=== PATIENT | female | born 1980 | race Caucasian/White ===

== ENCOUNTER 2022-10-10 10:08 | Day surgery (SDC) | payer BC ==
[2022-10-10] MEDS ORDERED: LIDOCAINE HCL 1% 50 MG/5 ML VL PF IJ ONE (10:09)
[2022-10-10] MEDS ORDERED: Decadron 4 MG INJ IV ONE (10:09)
[2022-10-10 10:29] LABS: HCG URINE TEST NEGATIVE (NEGATIVE)
[2022-10-10] MEDS ORDERED: DIPRIVAN 200 MG/20 ML IV ONE (12:01)
--- NOTE | 2022-10-10 13:12 | XRAY ---
Indication: Bilateral piriformis injection Intraoperative fluoroscopy provided for 16 seconds. 4 digital spot image submitted for interpretation demonstrates posterior needle tip projecting over the expected left and right piriformis muscle. Small amount of contrast injected for needle tip placement. Correlate with intraoperative findings/report.
[2022-10-10] MEDS ORDERED: Lactated Ringers 1,000 ML IV ONE (13:35)
--- NOTE | 2022-10-10 13:56 | XRAY ---
16 seconds of fluoroscopy was used in surgery for a bilateral piriformis injection.
== END 2022-10-10 12:30 | disposition home or self-care (01) ==
LOC: SDC-PAIN 10:08
PROVIDERS: ATTEND Psychiatry & Neurology Pain Medicine
DX: M79.18 Myalgia, other site (principal)
CPT/HCPCS: 20553; 72170; 77002; 81025; J1100; J2001; J2704; Q9966

== ENCOUNTER 2022-11-21 15:49 | Day surgery (SDC) | payer BC ==
[2022-11-21] MEDS ORDERED: BUPIVACAINE 0.5% VIAL IJ ONE (15:50)
[2022-11-21] MEDS ORDERED: Depo-Medrol 40 MG/ML IM ONE (15:50)
[2022-11-21 16:37] LABS: HCG URINE TEST NEGATIVE (NEGATIVE)
[2022-11-21] MEDS ORDERED: Lactated Ringers 1,000 ML IV ONE (17:21)
[2022-11-21] MEDS ORDERED: DIPRIVAN 200 MG/20 ML IV ONE ×2 (17:28→17:40)
--- NOTE | 2022-11-21 19:13 | XRAY ---
Indication: Bilateral SI joint and bilateral ischial bursa injection. Intraoperative fluoroscopy provided for 49 seconds. 7 digital spot images submitted for interpretation demonstrates posterior needle tip projecting over the left and right SI joint. Additional posterior needle tip projects inferior to the left and right ischial tuberosities with small amount of contrast injected for needle tip placement. Correlate with intraoperative findings/report.
--- NOTE | 2022-11-22 08:59 | XRAY ---
49 seconds of fluoroscopy was used in surgery for a bilateral sacroiliac joint and bilateral ischial bursa injection.
== END 2022-11-21 18:00 | disposition home or self-care (01) ==
LOC: SDC-PAIN 15:49
PROVIDERS: ATTEND Psychiatry & Neurology Pain Medicine
DX: M46.1 Sacroiliitis, not elsewhere classified (principal); M70.62 Trochanteric bursitis, left hip; M70.61 Trochanteric bursitis, right hip
CPT/HCPCS: 20610; 27096; 72202; 77002; 81025; J1030; J2704; Q9966; G0260

== ENCOUNTER 2023-08-17 15:32 | Emergency (ER) | payer BC ==
--- NOTE | 2023-08-17 15:44 | ERPHSYRPT ---
- History of Present Illness Time Seen by Provider: 08/17/23 15:44 Historian: patient Exam Limitations: no limitations Physician History: This is a 43-year-old white female patient of nurse practitioner Emmy who has a history of hypertension and gastroesophageal reflux disease as well as chronic constipation issues and presents to the emergency department with constipation and abdominal pain. Patient states that the abdominal pain is different than her usual constipation pain. Patient did use Tylenol and magnesium citrate without much benefit. She rates her abdominal pain as a 4 out of 10. Patient has had a bilateral tubal ligation in the past. Patient denies chest pain. Patient denies shortness of breath. Timing/Duration: day(s) (2), worse Quality: aching Abdominal Pain Onset Location: generalized abdomen Pain Radiation: no radiation Severity of Pain-Max: mild Severity of Pain-Current: mild Modifying Factors: Improves With: nothing Associated Symptoms: other (Obstipation) Previous symptoms: same symptoms as today, no recent treatment Allergies/Adverse Reactions: No Known Drug Allergies Allergy (Verified 08/17/23 15:55) Home Medications: Celecoxib [Celebrex] 200 mg PO DAILY 08/17/23 [History] PANTOPRAZOLE 40 mg Tablet [Protonix 40MG Tablet] 40 mg PO DAILY 08/17/23 [History] Spironolactone [Aldactone] 50 mg PO BID 08/17/23 [History] Travel Risk - International Travel Have you traveled outside of the country in past 3 weeks: No - Emerging Infectious Disease Are you exhibiting symptoms associated with any current EIDs: No - Review of Systems Constitutional: No Symptoms Eyes: No Symptoms Ears, Nose, & Throat: No Symptoms Respiratory: No Symptoms Cardiac: No Symptoms Abdominal/Gastrointestinal: Abdominal Pain, Constipation Genitourinary Symptoms: No Symptoms Musculoskeletal: No Symptoms Skin: No Symptoms Neurological: No Symptoms Psychological: No Symptoms Endocrine: No Symptoms Hematologic/Lymphatic: No Symptoms Immunological/Allergic: No Symptoms All Other Systems: Reviewed and Negative - Past Medical History Neurological History: No Pertinent History Cardiac History: No Pertinent History Respiratory History: No Pertinent History Endocrine Medical History: No Pertinent History Musculoskeletal History: No Pertinent History - Nursing Vital Signs Nursing Vital Signs: Initial Vital Signs Temperature 99.2 F 08/17/23 15:50 Pulse Rate 63 08/17/23 15:50 Respiratory Rate 17 08/17/23 15:50 Blood Pressure 125/75 08/17/23 15:50 O2 Sat by Pulse Oximetry 100 08/17/23 15:50 Pain Scale Pain Intensity 4 - Physical Exam General Appearance: no apparent distress, alert Eye Exam: PERRL/EOMI, eyes nml inspection Ears, Nose, Throat Exam: normal ENT inspection, moist mucous membranes Neck Exam: normal inspection, non-tender, supple, full range of motion Respiratory Exam: normal breath sounds, lungs clear, airway intact, No chest tenderness, No respiratory distress Cardiovascular Exam: regular rate/rhythm, normal heart sounds, normal peripheral pulses Gastrointestinal/Abdomen Exam: soft, normal bowel sounds, tenderness (Mild diffuse tenderness to palpation), guarding (Mild diffuse tenderness to palpation) Pelvic Exam: not done Rectal Exam: not done Back Exam: normal inspection, normal range of motion, No CVA tenderness, No vertebral tenderness Extremity Exam: normal inspection, normal range of motion, pelvis stable Neurologic Exam: alert, oriented x 3, cooperative, lead material handler II-XII nml as tested, normal mood/affect, nml cerebellar function, nml station & gait, sensation nml Skin Exam: normal color, warm, dry Lymphatic Exam: No adenopathy SpO2 Interpretation: normal - Course Nursing assessment & vital signs reviewed: Yes Ordered Tests: Active Orders 24 hr Category Date Time Status IV Insertion STAT Care 08/17/23 16:13 Active ABDOMEN AND PELVIS W/0 CONTRAS [CT] Stat Exams 08/17/23 16:14 Completed AMYLASE Stat Lab 08/17/23 16:23 Completed CBC W DIFF Stat Lab 08/17/23 16:23 Completed CMP Stat Lab 08/17/23 16:23 Completed LIPASE Stat Lab 08/17/23 16:23 Completed UA W/RFX UR CULTURE Stat Lab 08/17/23 16:45 Completed Lab/Rad Data: Laboratory Result Diagrams 08/17/23 16:23 08/17/23 16:23 Laboratory Results 08/17/23 08/17/23 08/17/23 Range/Units 16:45 16:23 16:23 WBC 8.5 (4.0-10.5) x10^3/uL RBC 3.99 L (4.1-5.4) x10^6/uL Hgb 12.0 (12.0-16.0) g/dL Hct 36.0 (35-47) % MCV 90.2 (78-100) fL MCH 30.1 (26-32) pg MCHC 33.3 (32-36) g/dL RDW 11.3 L (11.5-14.0) % Plt Count 161 (150-450) x10^3/uL MPV 10.8 (7.5-11.0) fL Gran % 79.0 H (36.0-66.0) % Immature Gran % (Auto) 0.1 (0.00-0.4) % Nucleat RBC Rel Count 0.0 (0.00-0.1) % Eos # (Auto) 0.04 (0-0.5) x10^3/uL Immature Gran # (Auto) 0.01 (0.00-0.03) x10^3u/L Absolute Lymphs (auto) 0.99 L (1.0-4.6) x10^3/uL Absolute Monos (auto) 0.72 (0.0-1.3) x10^3/uL Absolute Nucleated RBC 0.00 (0.00-0.01) x10^3u/L Lymphocytes % 11.7 L (24.0-44.0) % Monocytes % 8.5 (0.0-12.0) % Eosinophils % 0.5 (0.00-5.0) % Basophils % 0.2 (0.0-0.4) % Absolute Granulocytes 6.71 (1.4-6.9) x10^3/uL Basophils # 0.02 (0-0.4) x10^3/uL Sodium 139 (135-145) mmol/L Potassium 3.7 (3.5-5.1) mmol/L Chloride 107 (98-107) mmol/L Carbon Dioxide 28 (22-30) mmol/L Anion Gap 8.6 (5-15) MEQ/L BUN 13 (7-17) mg/dL Creatinine 0.78 (0.52-1.04) mg/dL Estimated GFR 96.6 ML/MIN Glucose 108 H (74-106) mg/dL Calcium 8.7 (8.4-10.2) mg/dL Total Bilirubin 0.70 (0.2-1.3) mg/dL AST 20 (14-36) U/L ALT 15 (0-35) U/L Alkaline Phosphatase 53 (38-126) U/L Serum Total Protein 6.8 (6.3-8.2) g/dL Albumin 3.7 (3.5-5.0) g/dL Amylase 65 (30-110) U/L Lipase 56 (23-300) U/L Urine Color Yellow (Yellow) Urine Appearance Clear (Clear) Urine pH 7.0 (4.6-8.0) Ur Specific [place] 1.010 (1.005-1.030) Urine Protein Negative (Negative) Urine Glucose (UA) Negative (Negative) mg/dL Urine Ketones Negative (Negative) Urine Blood Negative (Negative) Urine Nitrite Negative (Negative) Urine Bilirubin Negative (Negative) Urine Urobilinogen 0.2 (0.2) mg/dL Ur Leukocyte Esterase Negative (Negative) U Hyaline Cast (Auto) NONE SEEN (0-2) /LPF Urine Microscopic RBC 0-2 (0-5) /HPF Urine Microscopic WBC 0-2 (0-5) /HPF Ur Epithelial Cells None Seen (None Seen) /HPF Urine Bacteria None Seen (None Seen) /HPF Urine Culture Reflexed NO (NO) - Progress Progress Note: 08/17/23 16:17 My medical decision making and the assignment of moderate complexity to this patient's medical issue today is based on review of the patient's past medical history, review of the patient's medication list, review the patient drug allergy list, history present illness and physical findings on examination. The workup in this patient includes placement of intravenous line, CBC, CMP, amylase, lipase and urinalysis as well as CT scan of the abdomen pelvis without contrast. Differential diagnosis includes acute, intra-abdominal or intrapelvic abnormality such as bowel obstruction, colitis, reticulitis, acute appendicitis, pancreatitis, urinary tract infection, constipation 08/17/23 18:46 I interpreted the patient's laboratory data results. There are no acute, emergent findings based on the laboratory data results. CT scan of the abdomen pelvis without contrast was interpreted by the radiologist. I reviewed the impression. Impression states mid sigmoid diverticulitis without perforation or abscess. There is hepatomegaly present. The right lobe of the liver has a single cyst present1 cm. There is a 1 cm right lower lobe small, subpleural pulmonary nodule present. Recommended further evaluation as an outpatient. These findings were discussed in detail with the patient and her spouse Counseled pt/family regarding: lab results, diagnosis, need for follow-up, rad results - Departure Departure Disposition: Home Clinical Impression: Diverticulitis of sigmoid colon, Hepatomegaly, Hepatic cyst, Pulmonary nodule Condition: Stable Critical Care Time: No Referrals: [facility], ACCOUNTANT CONTROLLER [Primary Care Provider] - Follow up/PCP as directed Additional Instructions: Drink plenty of fluids. Drop your diet to a clear liquid diet and advance s lowly. Take your antibiotics and other medications as prescribed. Follow-up with your primary care provider on 08/19/2023 to make arrangements for a follow-up appointment to be seen in the next 3 to 5 days. Make sure you discuss the findings of the hepatic cyst and the pulmonary nodule. Prescriptions: Ciprofloxacin [Cipro 500 MG] 500 mg PO BID #14 tablet Metronidazole 500 mg [Flagyl 500 MG] 500 mg PO TID #21 tablet
[2023-08-17 16:03] VITALS: TEMP 99.2
[2023-08-17 16:24] LABS: Absolute Neutrophil Ct (ANC) 6.71 x10^3/uL (1.4-6.9); BASOPHIL % 0.2 % (0.0-0.4); Basophil (Absolute #) 0.02 x10^3/uL (0-0.4); Eosinophil % 0.5 % (0.00-5.0); Eosinophil (Absolute #) 0.04 x10^3/uL (0-0.5); IMMATURE GRAN # 0.01 x10^3u/L (0.00-0.03); IMMATURE GRAN % 0.1 % (0.00-0.4); Lymphocyte (Absolute #) 0.99 x10^3/uL (1.0-4.6); Lymphocytes % 11.7 % (24.0-44.0); Mean Cell Volume 90.2 fL (78-100); Mean Corpuscular Hemoglobin 30.1 pg (26-32); Mean Corpuscular Hgb Concent. 33.3 g/dL (32-36); Mean Platelet Volume 10.8 fL (7.5-11.0); Monocyte (Absolute #) 0.72 x10^3/uL (0.0-1.3); Monocytes % 8.5 % (0.0-12.0); Platelet Count 161 x10^3/uL (150-450); Red Blood Count 3.99 x10^6/uL (4.1-5.4); Red Cell Distribution Width 11.3 % (11.5-14.0); White Blood Count 8.5 x10^3/uL (4.0-10.5)
[2023-08-17 16:37] LABS: ALBUMIN 3.7 g/dL (3.5-5.0); ANION GAP 8.6 MEQ/L (5-15); BILIRUBIN,TOTAL 0.7 mg/dL (0.2-1.3); Calcium 8.7 mg/dL (8.4-10.2); Creatinine 1 0.78 mg/dL (0.52-1.04); EST GLOMERULAR FILTRATION RATE 96.6 ML/MIN; Potassium 3.7 mmol/L (3.5-5.1); Total Protein 6.8 g/dL (6.3-8.2)
[2023-08-17 16:59] LABS: Appearance Clear (Clear); Bacteria None Seen /HPF (None Seen); Bilirubin Negative (Negative); Blood Negative (Negative); Epithelial Cells None Seen /HPF (None Seen); Glucose, Urine Negative (Negative); Hyaline Casts NONE SEEN /LPF (0-2); Ketones Negative (Negative); Leukocyte Esterase Negative (Negative); Nitrite Negative (Negative); Protein,Urine Dip Negative (Negative); RBC 0-2 /HPF (0-5); Urobilinogen 0.2 mg/dL (0.2); WBC 0-2 /HPF (0-5)
[2023-08-17 17:08] LABS: ADD URINE CULTURE? NO (NO)
[2023-08-17 18:33] VITALS: BP 106/64; PULSE 69; RESP 18; O2SAT 100
--- NOTE | 2023-08-17 18:35 | XRAY ---
CLINICAL HISTORY: ABD pain; constipation COMPARISON: CT dated 08/19/2005. TECHNIQUE: CT scan of the abdomen and pelvis was performed without intravenous contrast administration. Coronal and sagittal reconstructions were also obtained. One of the following dose reduction techniques was utilized for this exam: Automated exposure control, adjustment of the mA and/or kV according to patient size, and use of iterative reconstruction. FINDINGS: The liver is enlarged in size, regular contour and homogeneous texture.Small hypodense lesion seen in the right lobe of liver measuring about 10 mm suggesting hepatic cyst No intra hepatic biliary radical dilatation. Cholecystectomy surgical clips noted. The spleen is of average size and shape with homogeneous parenchyma and no focal lesion could be noted on non-contrast basis. Both kidneys are of normal size, shape and parenchymal thickness with no stones, back pressure changes or space occupying lesions on non-contrast basis. The other retroperitoneal structures including the pancreas and adrenal glands are grossly within normal limits. No significant lymph evert enlargement or ascItic fluid collection. Appendix could not be visualized. Colonic diverticulosis noted involving sigmoid colon showing apparent thickening of the wall and smudging of the pericolic fat planes representing sigmoid diverticulitis. The uterus, both adnexa and ischiorectal fossae show normal CT appearance. Normal filling of the urinary bladder with no stones, masses, or diverticula. Bone window settings showed no evidence of fractures or destructive lesions. Lung window settings showed a right lower lobe small 8mm subpleural pulmonary nodule. Nodular pleural thickening seen in the right lung base IMPRESSION: Colonic diverticulosis involving sigmoid colon showing apparent thickening of the wall and smudging of the pericolic fat planes representing acute sigmoid diverticulitis. Interval new findings when compared with prior study Hepatomegaly. Small hypodense lesion seen in the right lobe of liver measuring about 10 mm suggesting hepatic cyst. Interval new finding Right lower lobe small 8mm subpleural pulmonary nodule for further assessment. Interval new finding [facility] was called at [phone] at 5:24 PM SERVICES TECH, 08/17/2023 and Sudhakar Bailey was informed regarding Significant Findings. Electronically Signed by: Amber Trevizo MD. (08/17/2023 18:30:51 EDT)
[2023-08-17] MEDS ORDERED: Flagyl 500 MG ONE (19:03)
[2023-08-17] MEDS: Flagyl 500 MG PO ONE (19:03)
[2023-08-17] MEDS ORDERED: Levofloxacin 500 MG Tablet ONE (19:03)
[2023-08-17] MEDS: Levofloxacin 500 MG Tablet PO ONE (19:04)
== END 2023-08-17 19:18 | disposition home or self-care (01) ==
LOC: ED 15:32
DX: K57.32 Diverticulitis of large intestine without perforation or abscess without bleeding (principal); R16.0 Hepatomegaly, not elsewhere classified; K76.89 Other specified diseases of liver; R91.1 Solitary pulmonary nodule; K59.00 Constipation, unspecified; R10.9 Unspecified abdominal pain; I10 Essential (primary) hypertension; Z79.899 Other long term (current) drug therapy
CPT/HCPCS: 36415; 74176; 80053; 81001; 82150; 83690; 85025; 99283; A9270-GY